=== PATIENT | female | born 2000 ===

== ENCOUNTER 2021-09-11 08:45 | Emergency (ER) | payer SELFPAY ==
[~2021-09-11] VITALS: Ht 154.9 cm; Wt 45.4 kg
[2021-09-11 09:48] VITALS: BP 128/72
== END 2021-09-11 11:49 | disposition home or self-care (01) ==
LOC: EDBD 08:45 → ER 08:45
DX: U07.1 COVID-19 (principal); J03.90 Acute tonsillitis, unspecified
CPT/HCPCS: 36415; 71045; 87426